=== PATIENT | male | born 1935 | race Caucasian/White ===

== ENCOUNTER 2016-11-27 17:38 | Inpatient (IN) | payer MEDICARE ==
[2016-11-27] MEDS ORDERED: SODIUM CHLORIDE 0.9% 500 ML IV STA (18:21)
[2016-11-27] MEDS ORDERED: METOCLOPRAMIDE 5 MG/ML 2 ML VIAL IVP STA (18:21)
--- NOTE | 2016-11-27 18:27 | ED ---
Nausea/Vomiting/Diarrhea HPI - General Chief complaint: Nausea/Vomiting/Diarrhea Stated complaint: NAUSEA, VOMITING Time Seen by Provider: 11/27/16 18:10 Source: patient, RN notes reviewed Mode of arrival: ambulatory Limitations: no limitations - History of Present Illness Initial comments: Patient is an 81-year-old male presenting to the with chief complaint of nausea and vomiting since early yesterday morning. He reports that he try to do at home Zofran however did not help. Patient reports that since he arrived to the emergency room this evening he had stop vomiting. Last episodes of vomiting only been bile. Denies any coffee-ground emesis. He states that the last time he is able to hold his food down was Monday night and since even something at comes back up. 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 He reports he's had no problems since the surgery, patient also had hernia repairs. He states that he's had no diarrhea or specific abdominal pain related to the vomiting. He states that his abdominal muscles are in pain during episodes of vomiting with flexion due to the amount of vomiting he's had. Patient states that he has felt slightly chilled. Patient has a past medical history significant for early onset of Alzheimer's disease and coronary artery disease. Patient denies any recent fever, shortness of breath, chest pain, back pain, abdominal pain, numbness or tingling, dysuria or hematuria, constipation or diarrhea, headaches or visual changes, or any other current symptoms. - Related Data Home Medications Medication Instructions Recorded Confirmed Donepezil HCl [Aricept] 20 mg PO HS 06/22/16 11/27/16 Memantine [Namenda] 10 mg PO BID 06/22/16 11/27/16 QUEtiapine [SEROquel] 50 mg PO HS 06/22/16 11/27/16 QUEtiapine [SEROquel] 200 mg PO HS 06/22/16 11/27/16 Multivitamins, Thera [Multivitamin] 1 tab PO DAILY 09/27/16 11/27/16 Elizabeth-3 Fatty Acids/Fish Oil [Fish 1 cap PO DAILY 09/27/16 11/27/16 Oil 1,000 mg Softgel] Allergies Allergy/AdvReac Type Severity Reaction Status Date / Time No Known Allergies Allergy Verified 11/27/16 18:12 Review of Systems ROS Statement: Those systems with pertinent positive or pertinent negative responses have been documented in the HPI. ROS Other: All systems not noted in ROS Statement are negative. Past Medical History Past Medical History: Coronary Artery Disease (CAD), Dementia, Myocardial Infarction ([place]) History of Any Multi-Drug Resistant Organisms: None Reported Past Surgical History: Heart Catheterization With Stent Past Psychological History: No Psychological Hx Reported Smoking Status: Former smoker Past Alcohol Use History: None Reported Past Drug Use History: None Reported - Past Family History Father Additional Family Medical History / Comment(s): Heart Problems Mother History Unknown: Yes Family Medical History: Cancer Additional Family Medical History / Comment(s): Lung cancer General Exam - General Exam Comments Initial Comments: Lamine is a pleasant 81-year-old male. He does not appear to be in any acute distress. Limitations: no limitations General appearance: alert, in no apparent distress Head exam: Present: atraumatic, normocephalic, normal inspection Eye exam: Present: normal appearance, PERRL, EOMI. Absent: scleral icterus, conjunctival injection, periorbital swelling ENT exam: Present: normal exam, normal oropharynx, mucous membranes moist Neck exam: Present: normal inspection. Absent: tenderness, meningismus, lymphadenopathy Respiratory exam: Present: normal lung sounds bilaterally. Absent: respiratory distress, wheezes, rales, rhonchi, stridor Cardiovascular Exam: Present: regular rate, normal rhythm, normal heart sounds. Absent: systolic murmur, diastolic murmur, rubs, gallop, clicks GI/Abdominal exam: Present: soft, normal bowel sounds, other (Evidence of scar from partial gastrectomy.). Absent: distended, tenderness, guarding, rebound, rigid Extremities exam: Present: normal inspection, full ROM, normal capillary refill. Absent: tenderness, pedal edema, joint swelling, calf tenderness Back exam: Present: normal inspection Neurological exam: Present: alert, oriented X3, CN II-XII intact Psychiatric exam: Present: normal affect, normal mood Skin exam: Present: warm, dry, intact, normal color. Absent: rash Course Vital Signs 11/27/16 11/27/16 17:59 20:36 Temperature 98.0 F 98.1 F Pulse Rate 103 H 97 Respiratory 18 18 Rate Blood Pressure 140/77 145/74 O2 Sat by Pulse 98 97 Oximetry Medical Decision Making - Medical Decision Making Patient is an 81-year-old male presenting to the [facility] with chief complaint of intractable vomiting for one day. She denies any specific abdominal pain. Patient's lab work was reviewed and compared to his visit on 09/27/2016 and shows a significant decrease in kidney function of the GFR 40 today. Patient reports that he had lab work done at the [facility] in mid October inch of the GFR 53. Patient will be admitted at this time for acute kidney injury possibly related to dehydration. It is unlikely that the kidney injuries related to his medications. 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 Patient will be given IV hydration as well as continuous nausea medication. Patient has not vomited while in the [facility] and states he is feeling better with hydration. Patient understands treatment plan and will comply. - Lab Data Result diagrams: 11/27/16 19:10 11/27/16 19:10 Lab Results 11/27/16 11/27/16 11/27/16 Range/Units 19:10 19:10 19:50 WBC 10.6 (3.8-10.6) k/uL RBC 4.61 (4.30-5.90) m/uL Hgb 14.0 (13.0-17.5) gm/dL Hct 43.2 (39.0-53.0) % MCV 93.7 (80.0-100.0) fL MCH 30.3 (25.0-35.0) pg MCHC 32.3 (31.0-37.0) g/dL RDW 13.3 (11.5-15.5) % Plt Count 236 (150-450) k/uL Neutrophils % 85 % Lymphocytes % 6 % Monocytes % 7 % Eosinophils % 0 % Basophils % 1 % Neutrophils # 9.0 H (1.3-7.7) k/uL Lymphocytes # 0.7 L (1.0-4.8) k/uL Monocytes # 0.8 (0-1.0) k/uL Eosinophils # 0.0 (0-0.7) k/uL Basophils # 0.1 (0-0.2) k/uL Sodium 143 (137-145) mmol/L Potassium 3.9 (3.5-5.1) mmol/L Chloride 101 (98-107) mmol/L Carbon Dioxide 30 (22-30) mmol/L Anion Gap 12 mmol/L BUN 24 H (9-20) mg/dL Creatinine 1.94 H (0.66-1.25) mg/dL Est GFR (MDRD) Af Amer 40 (>60 ml/min/1.73 sqM) Est GFR (MDRD) Non-Af 33 (>60 ml/min/1.73 sqM) Glucose 123 H (74-99) mg/dL Calcium 9.9 (8.4-10.2) mg/dL Total Bilirubin 0.8 (0.2-1.3) mg/dL AST 30 (17-59) U/L ALT 29 (21-72) U/L Alkaline Phosphatase 94 (38-126) U/L Total Protein 7.8 (6.3-8.2) g/dL Albumin 4.5 (3.5-5.0) g/dL Amylase 75 (30-110) U/L Lipase 41 (23-300) U/L Urine Color Red Urine Appearance Cloudy (Clear) Urine pH 5.5 (5.0-8.0) Ur Specific Topping 1.021 (1.001-1.035) Urine Protein 2+ H (Negative) Urine Glucose (UA) Negative (Negative) Urine Ketones 1+ H (Negative) Urine Blood Large H (Negative) Urine Nitrate Negative (Negative) Urine Bilirubin Negative (Negative) Urine Urobilinogen <2.0 (<2.0) mg/dL Ur Leukocyte Esterase Trace H (Negative) Urine RBC >182 H (0-5) /hpf Urine WBC 2 (0-5) /hpf Urine Mucus Moderate H (None) /hpf - Radiology Data Radiology results: report reviewed Patient's KUB x-ray shows no evidence of any acute findings. There is no change. Bowel gas pattern appears normal. No sign of intestinal obstruction or pneumoperitoneum. Fecal pattern appears to be normal. No evidence of any masses. Chest x-ray shows no acute cardiopulmonary disease. There is no change. Disposition Clinical Impression: Acute kidney injury, Intractable vomiting with nausea Disposition: ADMITTED IP TO THIS HOSP Condition: Stable Time of Disposition: 20:05
--- NOTE | 2016-11-27 18:49 | XR ---
EXAMINATION TYPE: XR KUB DATE OF EXAM: 11/27/2016 6:33 PM COMPARISON: 09/27/2016 HISTORY: Nausea and vomiting. Abdominal pain. TECHNIQUE: 2 views FINDINGS: Bowel gas pattern is normal. There is no sign of intestinal obstruction or pneumoperitoneum . Fecal pattern is normal. There is no evidence of a mass. IMPRESSION: Nonacute abdomen. No change.
--- NOTE | 2016-11-27 18:51 | XR ---
EXAMINATION TYPE: XR chest 2V DATE OF EXAM: 11/27/2016 6:33 PM COMPARISON: 09/27/2016 HISTORY: Nausea and vomiting. Chest pain. TECHNIQUE: Frontal and lateral views of the chest are obtained. FINDINGS: Heart is normal. Lungs are clear of consolidation. Costophrenic angles are clear. There i s spurring in the thoracic spine. There are no hilar masses. Bony thorax is intact. IMPRESSION: No active cardiopulmonary disease. No change.
[2016-11-27 19:20] LABS: Basophils # (A) 0.1 k/uL (0-0.2); Basophils % (A) 1 %; CH 31.7; Eosinophils % (A) 0 %; HCT 43.2 % (39.0-53.0); HDW 2.62; Luc # (Auto) 0.13; Luc % (Auto) 1; Lymphocytes # (A) 0.7 k/uL (1.0-4.8); Lymphocytes % (A) 6 %; MCH 30.3 pg (25.0-35.0); MCHC 32.3 g/dL (31.0-37.0); MCV 93.7 fL (80.0-100.0); Mean Platelet Volume 7.6; Monocytes # (A) 0.8 k/uL (0-1.0); Monocytes % (A) 7 %; Neutrophils % (A) 85 %; RBC 4.61 m/uL (4.30-5.90); RDW 13.3 % (11.5-15.5); WBC 10.6 k/uL (3.8-10.6); WBC (Perox) 11.01
[2016-11-27 19:28] LABS: Calcium 9.9 mg/dL (8.4-10.2); Potassium 3.9 mmol/L (3.5-5.1); Total Bilirubin 0.8 mg/dL (0.2-1.3); Total Protein 7.8 g/dL (6.3-8.2)
[2016-11-27 20:15] LABS: Appearance,Urine Cloudy (Clear); Bilirubin,Urine Negative (Negative); Glucose,Urine (UA) Negative (Negative); Ketones,Urine 1+ (Negative); Leukocyte Esterase,Urine Trace (Negative); Mucus,Urine Moderate /hpf; Nitrite,Urine Negative (Negative); PH, Urine 5.5 (5.0-8.0); Particle Count 27089; Protein,Urine 2+ (Negative); RBC,Urine >182 /hpf (0-5); Specific Gravity,Urine 1.021 (1.001-1.035); UA Billing (MACRO vs. MICRO) MICRO; Urobilinogen,Urine <2.0 mg/dL (<2.0); WBC,Urine 2 /hpf (0-5)
[2016-11-27] MEDS ORDERED: SODIUM CHLORIDE 0.9% 1,000 ML IV ONE (20:32)
[2016-11-27] MEDS ORDERED: PROMETHAZINE 25 MG TAB PO PRN (20:34)
[2016-11-27] MEDS ORDERED: NALOXONE 0.4 MG/ML 1 ML VIAL IV PRN (20:34)
[2016-11-27] MEDS ORDERED: ONDANSETRON 4 MG/2 ML VIAL IVP PRN (20:34)
[2016-11-27] MEDS ORDERED: ACETAMINOPHEN TAB 325 MG TAB PO PRN (20:34)
[2016-11-27] MEDS ORDERED: ALPRAZolam 0.25 MG TAB PO PRN (20:34)
[2016-11-27 21:44] VITALS: RESP 16
[2016-11-27] MEDS: MEMANTINE 10 MG TAB PO SCH (22:03)
[2016-11-27] MEDS: QUEtiapine 200 MG TAB PO SCH (22:03)
[2016-11-27] MEDS: FAMOTIDINE 20 MG TAB PO SCH (22:03)
[2016-11-27] MEDS: DONEPEZIL 10 MG TAB PO SCH (22:03)
[2016-11-27] MEDS: QUEtiapine 50 MG TAB PO SCH (22:04)
[2016-11-28] MEDS: FAMOTIDINE 20 MG TAB PO SCH (08:24)
[2016-11-28] MEDS: MEMANTINE 10 MG TAB PO SCH ×2 (08:24→21:34)
[2016-11-28 08:35] LABS: Calcium 8.8 mg/dL (8.4-10.2); Potassium 3.9 mmol/L (3.5-5.1)
[2016-11-28] MEDS ORDERED: NON-FORMULARY DRUG (Omega-3 Fatty Acids/Fish Oil [Fish Oil 1,000 Mg Softgel] 1 CAP) PO SCH (09:00)
[2016-11-28] MEDS ORDERED: SODIUM CHLORIDE 0.9% 1,000 ML IV SCH (09:45)
--- NOTE | 2016-11-28 12:19 | P.HPIM ---
History of Present Illness H&P Date: 11/28/16 Chief Complaint: Nausea and vomiting Is a 81-year-old gentleman, patient of Dr. Hauser. He has a known past medical history of Alzheimer's, a partial gastrectomy secondary to a perforated ulcer about 20 years ago, coronary artery disease with cardiac stent and myocardial infarction. Patient was brought into the emergency room by his due to having nausea and vomiting. Symptoms had started Monday morning. He was unable to keep any food or liquids down. He then vomiting only bile. She became concerned and brought him into the emergency room for further evaluation and treatment. He was found to be dehydrated and with acute renal failure creatinine was 1.94. His placed on IV fluids. Patient had previous episode of vomiting and nausea and September of this year and was diagnosed with gastritis and sent home from the emergency room. Patient's reports that he has never had an EGD or colonoscopy he's refused in the past. He follows up at the [facility] and he was told he's had some kidney injury and was had a GFR of 53 back in October. They also noted that he had some anemia and was started on iron. Hemoglobin is stable. There is no evidence of any coffee-ground emesis. Patient denies any diarrhea or constipation. Has not had any vomiting since being admitted to the hospital. Denies any chest pain or shortness of breath. Denies any difficulty urinating. Most of history was obtained from the at bedside. Abdominal x-ray and chest x-ray negative Review of Systems Please refer to HPI otherwise unremarkable Past Medical History Past Medical History: Coronary Artery Disease (CAD), Dementia, Myocardial Infarction ([place]) Additional Past Medical History / Comment(s): Kidney stones Last Myocardial Infarction Date:: 07/31/2003 History of Any Multi-Drug Resistant Organisms: None Reported Past Surgical History: Heart Catheterization With Stent Date of Last Stent Placement:: 07/31/2003 Past Psychological History: No Psychological Hx Reported Smoking Status: Former smoker Past Alcohol Use History: None Reported Past Drug Use History: None Reported - Past Family History Father Additional Family Medical History / Comment(s): Heart Problems Mother History Unknown: Yes Family Medical History: Cancer Additional Family Medical History / Comment(s): Lung cancer Medications and Allergies Home Medications Medication Instructions Recorded Confirmed Type Donepezil HCl [Aricept] 20 mg PO HS 06/22/16 11/27/16 History Memantine [Namenda] 10 mg PO BID 06/22/16 11/27/16 History QUEtiapine [SEROquel] 50 mg PO HS 06/22/16 11/27/16 History QUEtiapine [SEROquel] 200 mg PO HS 06/22/16 11/27/16 History Multivitamins, Thera [Multivitamin] 1 tab PO DAILY 09/27/16 11/27/16 History Sallis-3 Fatty Acids/Fish Oil [Fish 1 cap PO DAILY 09/27/16 11/27/16 History Oil 1,000 mg Softgel] Allergies Allergy/AdvReac Type Severity Reaction Status Date / Time No Known Allergies Allergy Verified 11/27/16 18:12 Physical Exam Vitals: Vital Signs Temp Pulse Pulse Resp BP BP Pulse Ox 11/28/16 07:00 98.1 F 53 L 16 119/58 92 L 11/27/16 21:35 96.9 F L 91 16 157/83 96 11/27/16 20:36 98.1 F 97 18 145/74 97 Intake and Output 11/27/16 11/28/16 11/28/16 22:59 06:59 14:59 Intake Total 125 1000 Balance 125 1000 Intake: IV 125 1000 Sodium Chloride 0.9% 1, 125 1000 000 ml @ 125 mls/hr IV . Q8H ONE Rx#:[id number] Other: # Voids 1 2 Head normocephalic Neck supple Lungs clear to auscultation bilaterally no wheezing or crackles Heart regular rate and rhythm S1-S2, no rub or gallop Abdomen is soft nontender diffuse tenderness Extremities no edema Neuro alert and orientated to 3 Results CBC & Chem 7: 11/27/16 19:10 11/28/16 07:39 Labs: Abnormal Lab Results - Last 24 Hours (Table) 11/28/16 Range/Units 07:39 BUN 22 H (9-20) mg/dL Creatinine 1.73 H (0.66-1.25) mg/dL Glucose 112 H (74-99) mg/dL Thrombosis Risk Factor Assmnt - Choose All That Apply Each Risk Factor Represents 3 Points: Age 75 years or older Thrombosis Risk Factor Assessment Total Risk Factor Score: 3 Thrombosis Risk Factor Assessment Level: Moderate Risk Assessment and Plan Plan: 1. Intractable nausea and vomiting: Possibly secondary to viral gastroenteritis. Continue to monitor. Abdominal x-ray was negative. Continue with IV fluid hydration normal saline at 50 mL an hour. Patient has been started on a regular diet. Continue Zofran and Phenergan as needed 2. Acute kidney injury: Likely related to vomiting. Showing improvement. Creatinine trending down to 1.73. Continue with IV fluid hydration. 3. Dementia Alzheimer's type continue the Aricept and Namenda. 4. 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 History of coronary artery disease with cardiac stent and myocardial infarction GI and DVT prophylaxis Pepcid and subcu heparin Time with Patient: Greater than 30 (Greater than 50% of the total time spent in counseling and coordination of care.I performed an examination of the patient and discussed their management with the physician Cad Application Support Specialist. I have reviewed the Physician Cad Application Support Specialist's notes and agree with the documented findings and plan of care)
[2016-11-28] MEDS: MULTIVITAMINS, THERA 1 EACH TAB PO SCH (12:38)
[2016-11-28 13:44] VITALS: BMI 22.8
[2016-11-28] MEDS: SODIUM CHLORIDE 0.9% 1,000 ML IV SCH ×2 (19:41→23:36)
[2016-11-28] MEDS: DONEPEZIL 10 MG TAB PO SCH (21:33)
[2016-11-28] MEDS: QUEtiapine 200 MG TAB PO SCH (21:33)
[2016-11-28] MEDS: HEPARIN SODIUM,PORCINE 5,000 UNIT/ML 1 ML VIAL SQ SCH (21:33)
[2016-11-28] MEDS: QUEtiapine 50 MG TAB PO SCH (21:34)
[2016-11-29] MEDS: MULTIVITAMINS, THERA 1 EACH TAB PO SCH (08:21)
[2016-11-29] MEDS: MEMANTINE 10 MG TAB PO SCH (08:21)
[2016-11-29] MEDS: HEPARIN SODIUM,PORCINE 5,000 UNIT/ML 1 ML VIAL SQ SCH (08:21)
--- NOTE | 2016-11-29 08:44 | US ---
EXAMINATION TYPE: US abdomen complete DATE OF EXAM: 11/29/2016 7:56 AM COMPARISON: CT abdomen and pelvis June 22, 2016 CLINICAL HISTORY: Abd pain, vomiting, r/o GB disease. EXAM MEASUREMENTS: Liver Length: 15.2cm Gallbladder Wall: 2mm CBD: 0.2cm Spleen: 12.4cm Right Kidney: 10.1 x 6.2 x 5.2cm Left Kidney: 10.5 x 4.9 x 5.1cm ANATOMY: TECHNOLOGIST IMPRESSION: pt has extensive overlying bowel gas making exam technically difficult and somewhat limited *incidental finding of pleural effusion Pancreas: Obscured by bowel gas Liver: Visualized liver is heterogeneously hyperechoic without intrahepatic ductal dilatation. Evalua tion for focal masses suboptimal due to the heterogeneity. There is suspicion for a 3.0 x 2.5 x 2.7 c m round lesion in the hepatic dome that has peripheral hypoechogenicity and central hyperechogenicity believed to correlate to lesion posterior right hepatic segment on image [address] Further workup advised. Scattered small cysts throughout the liver on CT are less well seen on ultrasound. Gallbladder: Suboptimal evaluation due to extensive bowel gas, there may be small gallbladder sludge or small stones. Evidence for sonographic Newman's sign: no CBD: wnl Spleen: wnl Right Kidney: inferior pole obscured by overlying bowel gas, heterogenous appearance Left Kidney: heterogenous appearance Upper IVC: Obscured by overlying bowel gas Abd Aorta: distal measured at 3.1 centimeters transversely, unable to visualize proximal. Ectatic co urse to visualized aorta noted. IMPRESSION: Possible small degree of gallbladder sludge or small stones. No secondary ultrasound evid ence for acute cholecystitis. Note is made of 3.0 cm solid liver lesion which correlates with prior C T, neoplasm cannot be excluded, further investigation with multiphasic liver protocol contrast-enhan guillermo CT or MRI is advised Normal Values: Liver Length: < 16cm wnl, 17-18cm upper limits, >18cm enlarged Spleen Length = < 13cm Renal Length = 9 - 12cm GB Wall: < 0.3cm CBD: < 0.6cm or < 1.0cm post cholecystectomy
[2016-11-29] MEDS ORDERED: FAMOTIDINE 20 MG TAB PO SCH (09:00)
--- NOTE | 2016-11-29 10:33 | P.PN ---
Progress Note - Text Consultation declined by patient's spouse until she speaks with attending and discussion of ultrasound findings. Dr. Garcia updated with patient spouse request. Please reconsult if our services are needed.
[2016-11-29 11:01] LABS: Basophils % (A) 1 %; CH 31.1; CHCM 33.5; Eosinophils % (A) 1 %; HCT 35.2 % (39.0-53.0); HDW 2.65; HGB 11.6 gm/dL (13.0-17.5); Luc # (Auto) 0.08; Luc % (Auto) 2; Lymphocytes # (A) 0.6 k/uL (1.0-4.8); Lymphocytes % (A) 15 %; MCH 30.8 pg (25.0-35.0); MCV 93.4 fL (80.0-100.0); Mean Platelet Volume 7.8; Monocytes # (A) 0.4 k/uL (0-1.0); Monocytes % (A) 10 %; Neutrophils # (A) 3.1 k/uL (1.3-7.7); Neutrophils % (A) 73 %; RBC 3.77 m/uL (4.30-5.90); RDW 13.3 % (11.5-15.5); WBC 4.2 k/uL (3.8-10.6); WBC (Perox) 4.62
[2016-11-29 12:07] LABS: Calcium 8.6 mg/dL (8.4-10.2); Total Bilirubin 0.6 mg/dL (0.2-1.3); Total Protein 5.8 g/dL (6.3-8.2)
[2016-11-29] MEDS ORDERED: PANTOPRAZOLE 40 MG TABLET PO SCH (12:30)
--- NOTE | 2016-11-29 16:26 | P.DS ---
Providers Date of admission: 11/27/16 20:32 Expected date of discharge: 11/29/16 Attending physician: Rose Lauren Primary care physician: Kaushal Hauser [facility] Course: Diagnosis on discharge #1 gastroenteritis with nausea and vomiting #2 dehydration #3 acute renal failure due to prerenal azotemia #4 underlying history of Alzheimer's disease was advanced dementia Hospital course Patient is an 81-year-old male who presented to [facility] emergency room due to nausea and vomiting he was admitted to medical floor he was started on IV fluid he was treated symptomatically with Zofran he was started on Protonix 40 mg once daily. Ultrasound of abdomen was done and revealed possible evidence of stones in the gallbladder or sludge in the gallbladder without any evidence of acute cholecystitis patient received 1 dose of IV Rocephin during this admission he was feeling better he was able to eat and drink without any difficulty on 11/29/2016. Gastroenterology consultation was requested however family refused consult, possibility of peptic ulcer disease was discussed with them and the possible need for EGD was discussed however family refused any testing at this time patient improved he was discharged home on 11/29/2016 he will be followed as outpatient for further evaluation and treatment. He was given a prescription for Protonix 40 mg 1 daily #30 with 3 refills otherwise continue same medication as prior to admission Follow-up with Dr. Hauser within one week Patient Condition at Discharge: Stable Plan - Discharge Summary Discharge Medication List Donepezil HCl [Aricept] 20 mg PO HS 06/22/16 [History] Memantine [Namenda] 10 mg PO BID 06/22/16 [History] QUEtiapine [SEROquel] 50 mg PO HS 06/22/16 [History] QUEtiapine [SEROquel] 200 mg PO HS 06/22/16 [History] Multivitamins, Thera [Multivitamin] 1 tab PO DAILY 09/27/16 [History] Lovejoy-3 Fatty Acids/Fish Oil [Fish Oil 1,000 mg Softgel] 1 cap PO DAILY [History] Pantoprazole [Protonix] 40 mg PO [id number] tablet. 11/29/16 [Rx] Follow up Appointment(s)/Referral(s): Kaushal Hauser MD [Primary Care Provider] - 1-2 days
[2016-11-29 16:28] VITALS: BP 138/72; PULSE 86; TEMP 97.9
== END 2016-11-29 16:50 | disposition home or self-care (01) | DRG 684 ==
LOC: EC 17:38 → 5MS5E 20:32
PROVIDERS: ADMIT Internal Medicine; ATTEND Internal Medicine
DX: N17.9 Acute kidney failure, unspecified (principal); E86.0 Dehydration; G30.9 Alzheimer's disease, unspecified; F02.80 Dementia in other diseases classified elsewhere, unspecified severity, without behavioral disturbance, psychotic disturbance, mood disturbance, and anxiety; I25.10 Atherosclerotic heart disease of native coronary artery without angina pectoris; I25.2 Old myocardial infarction; K52.9 Noninfective gastroenteritis and colitis, unspecified; K80.20 Calculus of gallbladder without cholecystitis without obstruction; R79.89 Other specified abnormal findings of blood chemistry; Z87.891 Personal history of nicotine dependence; Z95.5 Presence of coronary angioplasty implant and graft; Z79.899 Other long term (current) drug therapy
CPT/HCPCS: 36415; 71020; 74000; 76700; 80048; 80053; 81001; 82150; 83690; 85025; 87086; 96360; 96361; 99285